=== PATIENT | male | born 1940 | race Caucasian/White ===

== ENCOUNTER 2017-02-19 23:16 | Emergency (ER) | payer MEDICAID, MEDICARE ==
[~2017-02-19] VITALS: Ht 175.3 cm; Wt 86.4 kg
[~2017-02-19 23:16] MED LIST: ASCO500T6 PO; CLON1TAB23 PO; DOCU-131 PO; DOXY100T PO; FERR325T18 PO; FOLI-17 PO; MULT1TAB60 PO; OMEP-110 PO; QUET25TA PO; RISP2TAB3 PO; RISP2TAB35 PO; TRAZ100T15 PO; Thiamine Hcl PO
[2017-02-19] MEDS ORDERED: SODIUM CHLORIDE 0.9% 1,000ML IVBOLUS ONE (23:30)
[2017-02-19] MEDS ORDERED: SODIUM CHLORIDE FLUSH 10ML SYR IVF ONE (23:30)
[2017-02-19 23:52] LABS: HEMATOCRIT 37.7 % (39.2-51.8); WHITE BLOOD COUNT 7.6 x10^3/uL (3.4-10)
[2017-02-20 00:04] LABS: ASPARTATE AMINO TRANSFERASE 16 U/L (15-37); BLOOD UREA NITROGEN 12 mg/dL (7-18)
[2017-02-20] MEDS ORDERED: RISPERIDONE 2 MG TABLET PO ONE (01:00)
[2017-02-20 01:37] LABS: DAU SCREEN DISCLAIMER
[2017-02-20 01:38] VITALS: BP 135/77
[2017-02-20] MEDS ORDERED: ACETAMINOPHEN 325 MG TABLET ONE (02:04)
[2017-02-20] MEDS ORDERED: ACETAMINOPHEN 325 MG TABLET PO ONE (02:30)
== END 2017-02-20 02:19 | disposition home or self-care (01) ==
LOC: ED 23:59
DX: R10.84 Generalized abdominal pain (principal); Z72.89 Other problems related to lifestyle; F25.9 Schizoaffective disorder, unspecified; F10.20 Alcohol dependence, uncomplicated; F17.200 Nicotine dependence, unspecified, uncomplicated
CPT/HCPCS: 36415; 74176; 80053; 80307; 81003; 83690; 85025; 85610; 85730; 99285; G0479

== ENCOUNTER 2019-07-16 19:39 | Emergency (ER) | payer MEDICARE, MEDICAID ==
[~2019-07-16] VITALS: Ht 175.3 cm; Wt 80.0 kg
[~2019-07-16 19:39] MED LIST changes: -QUET25TA PO; +QUET25TA7 PO; +TRAZ-175 PO; -TRAZ100T15 PO
[2019-07-16] MEDS ORDERED: ALBUTEROL/IPRATROPIUM 2.5MG/0.5MG, 3 ML NPPB ONE (20:00)
--- NOTE | 2019-07-16 20:17 | NUR ---
PT RECLINED IN BED, REPORTS HE IS TIRED AND COLD. PT REPORTS VISITING HERE FROM [place]. STAYING AT PRISON, BUT DIDN'T WANT TO WALK BACK TO PRISON. COUGH NOTED. PLAN FOR BREATHING [place]. NAD NOTED IN PT.
[2019-07-16] MEDS ORDERED: PLEASE ENTER HEIGHT AND WEIGHT MC SCH (20:30)
[2019-07-16 20:31] LABS: RAPID INFLUENZA A Negative (Negative); RAPID INFLUENZA B Negative (Negative)
[2019-07-16 20:41] LABS: BASOPHILS % (AUTO) 0 % (0-1); EOSINOPHILS # (AUTO) 0.04 x10^3/uL (0-0.4); EOSINOPHILS % (AUTO) 1 % (1-7); LYMPHOCYTES # (AUTO) 0.83 x10^3/uL (1-3.4); LYMPHOCYTES % (AUTO) 12 % (22-44); MD NO; MEAN CORPUSCULAR HEMOGLOBIN 21.3 pg (27.5-34.5); MEAN CORPUSCULAR HGB CONC 31.5 g/dL (33.2-36.2); MEAN CORPUSCULAR VOLUME 67.7 fL (81-97); MEAN PLATELET VOLUME 8.7 fL (7.4-10.4); MONOCYTES # (AUTO) 0.42 x10^3/uL (0.2-0.8); MONOCYTES % (AUTO) 6 % (2-9); NEUTROPHILS # (AUTO) 5.61 x10^3/uL (1.8-6.8); NEUTROPHILS % (AUTO) 81 % (42-75); PLATELET COUNT 276 x10^3/uL (130-400); RED BLOOD COUNT 5.83 x10^6/uL (4.38-5.82); RED CELL DISTRIBUTION WIDTH 15.7 % (9.4-14.8)
[2019-07-16 20:54] LABS: ALBUMIN 3.3 g/dL (3.4-5.0); ANION GAP 6 mmol/L (5-15); CALCIUM 7.9 mg/dL (8.5-10.1); CHLORIDE 103 mmol/L (98-107)
[2019-07-16 20:58] LABS: ALANINE AMINOTRANSFERASE 15 U/L (12-78); ALKALINE PHOSPHATASE 64 U/L (45-117); CREATININE 0.91 mg/dL (0.7-1.3); TOTAL PROTEIN 7.2 g/dL (6.4-8.2)
[2019-07-16] MEDS ORDERED: DEXAMETHASONE 4 MG/ML, 1ML PO ONE (21:00)
--- NOTE | 2019-07-16 21:04 | NUR ---
PT ASLEEP. RESPIRATIONS EVEN AND UNLABORED ON NC. NAD NOTED. AWAITING RECHECK.
[2019-07-16] MEDS ORDERED: ALBUTEROL SULFATE 2.5MG/0.5ML NPPB ONE (21:30)
--- NOTE | 2019-07-16 21:57 | NUR ---
REPORT GIVEN TO DI HARRELL.
[2019-07-16 22:39] VITALS: BP 121/55
== END 2019-07-16 23:03 | disposition home or self-care (01) ==
LOC: ED 21:00
DX: J20.8 Acute bronchitis due to other specified organisms (principal); F20.9 Schizophrenia, unspecified; Z59.0 Homelessness; F17.210 Nicotine dependence, cigarettes, uncomplicated
CPT/HCPCS: 36415; 71045; 80053; 85025; 87400; 94640; 99284; J7611; J7620